=== PATIENT | male | born 1965 | race Caucasian/White ===

== ENCOUNTER 2017-01-16 08:21 | Outpatient (CLI) | payer OTHER ==
[2016-09-17 12:35] VITALS: BP 129/82
[2017-01-16 09:07] LABS: BASOPHILS % 0.2 (0.0-1.5); EOSINOPHILS % 0.9 % (0.0-6.8); MEAN CORPUSCULAR HEMOGLOBIN 33.2 pg (28.0-34.0); MONOCYTES # 0.5 # k/uL (0.0-0.9); MONOCYTES % 7.7 % (0.0-11.0)
[2017-01-16 09:33] LABS: BILIRUBIN,DIRECT 0.2 mg/dL (0.0-0.4); eGFR (African) > 60; eGFR (Non-African) > 60
== END 2017-01-16 08:22 ==
LOC: POD 08:21
PROVIDERS: ATTEND Podiatrist Public Medicine
DX: M79.672 Pain in left foot (principal); M79.671 Pain in right foot; L85.1 Acquired keratosis [keratoderma] palmaris et plantaris; B35.1 Tinea unguium; L60.0 Ingrowing nail; M79.674 Pain in right toe(s); M79.675 Pain in left toe(s)
CPT/HCPCS: 11721; 36415; 80076; 82565; 85025; G0463

== ENCOUNTER 2017-05-08 10:21 | Outpatient (CLI) | payer OTHER ==
[2016-09-17 12:35] VITALS: BP 129/82
== END 2017-05-08 10:22 ==
LOC: POD 10:21
PROVIDERS: ATTEND Podiatrist Public Medicine
DX: B35.1 Tinea unguium (principal); L84 Corns and callosities; L60.0 Ingrowing nail; M79.671 Pain in right foot; M79.672 Pain in left foot; M79.674 Pain in right toe(s); M79.675 Pain in left toe(s); L85.1 Acquired keratosis [keratoderma] palmaris et plantaris
CPT/HCPCS: 11721; G0463

== ENCOUNTER 2017-08-07 09:58 | Outpatient (CLI) | payer OTHER ==
[2016-09-17 12:35] VITALS: BP 129/82
== END 2017-08-07 10:00 ==
LOC: POD 09:58
PROVIDERS: ATTEND Podiatrist Public Medicine
DX: B35.1 Tinea unguium (principal); M79.674 Pain in right toe(s); M79.675 Pain in left toe(s); M79.671 Pain in right foot; M79.672 Pain in left foot; L60.0 Ingrowing nail; L84 Corns and callosities; L85.1 Acquired keratosis [keratoderma] palmaris et plantaris
CPT/HCPCS: 11721; G0463

== ENCOUNTER 2017-08-08 15:41 | Outpatient (CLI) | payer OTHER ==
[2016-09-17 12:35] VITALS: BP 129/82
[2017-08-08 16:04] LABS: BASOPHILS % 0.8 (0.0-1.5); EOSINOPHILS % 2.1 % (0.0-6.8); MEAN CORPUSCULAR HEMOGLOBIN 31.7 pg (28.0-34.0); MONOCYTES % 6.2 % (0.0-11.0); NEUTROPHILS # 4.9 # k/uL (1.4-7.7)
[2017-08-08 16:32] LABS: eGFR (African) > 60; eGFR (Non-African) > 60
== END 2017-08-08 15:42 ==
LOC: LAB 15:41
PROVIDERS: ATTEND Pathology Clinical Pathology/Laboratory Medicine
DX: M06.9 Rheumatoid arthritis, unspecified (principal); Z92.25 Personal history of immunosuppression therapy
CPT/HCPCS: 36415; 80076; 82565; 85025

== ENCOUNTER 2017-09-17 07:09 | Outpatient (CLI) | payer OTHER ==
[2016-09-17 12:35] VITALS: BP 129/82
[2017-09-17 07:23] LABS: BASOPHILS % 0.9 (0.0-1.5); EOSINOPHILS % 2.1 % (0.0-6.8); MEAN CORPUSCULAR HEMOGLOBIN 32.2 pg (28.0-34.0); MEAN CORPUSCULAR VOLUME 92.4 fl (80.0-100.0); MONOCYTES % 8.1 % (0.0-11.0); NEUTROPHILS # 4.3 # k/uL (1.4-7.7)
[2017-09-17 08:09] LABS: eGFR (African) > 60; eGFR (Non-African) > 60
== END 2017-09-17 07:20 ==
LOC: LAB 07:09
PROVIDERS: ATTEND Family Medicine
DX: Z51.81 Encounter for therapeutic drug level monitoring (principal); E78.5 Hyperlipidemia, unspecified
CPT/HCPCS: 36415; 80053; 80061; 82607; 82746; 85025

== ENCOUNTER 2017-12-04 10:36 | Outpatient (CLI) | payer OTHER ==
[2016-09-17 12:35] VITALS: BP 129/82
== END 2017-12-04 10:37 ==
LOC: POD 10:36
PROVIDERS: ATTEND Podiatrist Public Medicine
DX: L85.1 Acquired keratosis [keratoderma] palmaris et plantaris (principal); M79.671 Pain in right foot; M79.672 Pain in left foot; B35.1 Tinea unguium; L84 Corns and callosities; L60.0 Ingrowing nail; M79.674 Pain in right toe(s); M79.675 Pain in left toe(s)
CPT/HCPCS: 11721; G0463

== ENCOUNTER 2018-03-05 10:24 | Outpatient (CLI) | payer OTHER ==
[2016-09-17 12:35] VITALS: BP 129/82
== END 2018-03-05 10:25 ==
LOC: POD 10:24
PROVIDERS: ATTEND Podiatrist Public Medicine
DX: L85.1 Acquired keratosis [keratoderma] palmaris et plantaris (principal); M79.671 Pain in right foot; M79.672 Pain in left foot; B35.1 Tinea unguium; L84 Corns and callosities; L60.0 Ingrowing nail; M79.674 Pain in right toe(s); M79.675 Pain in left toe(s)
CPT/HCPCS: 11721; G0463

== ENCOUNTER 2018-07-02 10:34 | Outpatient (CLI) | payer OTHER ==
[2016-09-17 12:35] VITALS: BP 129/82
== END 2018-07-02 10:35 ==
LOC: POD 10:34
PROVIDERS: ATTEND Podiatrist Public Medicine
DX: L85.1 Acquired keratosis [keratoderma] palmaris et plantaris (principal); M79.671 Pain in right foot; M79.672 Pain in left foot; B35.1 Tinea unguium; L84 Corns and callosities; L60.0 Ingrowing nail; M79.674 Pain in right toe(s); M79.675 Pain in left toe(s)
CPT/HCPCS: 11721; G0463

== ENCOUNTER 2018-10-21 06:47 | Outpatient (CLI) | payer OTHER ==
[2016-09-17 12:35] VITALS: BP 129/82
[2018-10-21 07:58] LABS: eGFR (Non-African) > 60
== END 2018-10-21 06:50 ==
LOC: LAB 06:47
PROVIDERS: ATTEND Family Medicine
DX: E03.9 Hypothyroidism, unspecified (principal)
CPT/HCPCS: 36415; 80053; 80061; 80185; 84439; 84443; 84481

== ENCOUNTER 2019-05-08 12:15 | Outpatient (CLI) | payer OTHER ==
[2016-09-17 12:35] VITALS: BP 129/82
[2019-05-20 14:54] LABS: BASOPHILS % 0.5 % (0.0-1.5); eGFR (Non-African) > 60
== END 2019-05-08 12:30 | disposition home or self-care (01) ==
LOC: LAB 12:15
PROVIDERS: ATTEND Family Medicine
DX: G40.909 Epilepsy, unspecified, not intractable, without status epilepticus (principal); I48.91 Unspecified atrial fibrillation
CPT/HCPCS: 36415; 80053; 80185; 85025

== ENCOUNTER 2019-11-04 09:00 | Outpatient (CLI) | payer OTHER ==
[2016-09-17 12:35] VITALS: BP 129/82
[2019-11-04 09:22] LABS: BASOPHILS % 0.3 % (0.0-1.5); NEUTROPHILS # 4.1 # k/uL (1.4-7.7)
[2019-11-04 10:05] LABS: eGFR (Non-African) > 60
[2019-11-04 10:06] LABS: HDL 34 mg/dL (>40)
== END 2019-11-04 09:05 ==
LOC: LAB 09:00
PROVIDERS: ATTEND Family Medicine
DX: E78.5 Hyperlipidemia, unspecified (principal)
CPT/HCPCS: 36415; 80053; 80061; 80185; 85025

== ENCOUNTER 2019-11-12 14:12 | Outpatient (CLI) | payer OTHER ==
[2016-09-17 12:35] VITALS: BP 129/82
--- NOTE | 2019-11-16 16:42 | OP Clinic Progress Note ---
DATE OF VISIT: 11/12/2019 SUBJECTIVE: Amor is a 54-year-old male presenting today with his caregiver for a right great toe medial and lateral border ingrown pain. The patient was seen earlier this week and had nails trimmed with an effort to try and relieve pain in this area. He states that he has continued to have pain and would like a procedure done to fix that. The patient as well as the caregiver as well as the guardian, Jeannine Gore who was on the phone, were able to listen to the risks and benefits of either a partial nail avulsion of both inside and outside portions of the great toe versus possibly adding a chemical matrixectomy and we elected to go forward altogether with just a plain partial nail avulsion to give it a chance to grow back and if it is a problem later on then we will do the chemical matrixectomy. His blood flow seems to be 1+ and I believe that he should do well with good capillary refill time present at the toe. The patient has no further questions or concerns and does not admit to any fevers, chills, nausea, vomiting, shortness of breath or chest pain. He denies being diabetic. OBJECTIVE: Vitals: Temperature 97.9 degrees Fahrenheit, heart rate 69, respiration rate 18, blood pressure 108/69. O2 saturation is 91% on room air. Vascular: 1+ DP and PT pulses, right foot. Capillary refill time is immediate to the right great toe. There is no edema noted in the right foot. Dermatologic: There was no obvious irritation about the medial or lateral borders of the right great toe. There were no other gross abnormalities noted except for some inflammation of the right great toenail. There is no drainage or any signs of infection. Musculoskeletal: There is pain on palpation that is present today on the medial and lateral borders of the right great toenail along the length of the nail, not just the tip. There is no significant gross abnormalities noted. Neurologic: Light touch sensation is intact to the toes, right foot. ASSESSMENT AND PLAN: 1. Onychocryptosis right great toe medial and lateral borders. 2. Jeannine Gore the legal guardian was placed on the phone today and a discussion was had with her as well as her caregiver and the patient Amor regarding the planned procedure for partial nail avulsion of the medial and lateral borders of the right great toenail. Risks and benefits that include but are not limited to bleeding and infection were discussed and consent was given verbally by Jeannine Gore, the legal guardian over the phone and witnessed by Star ____. The patient agreed as well to the procedure and this procedure was performed. PROCEDURE #1: Partial nail avulsion of the medial and lateral borders of the right great toenail. DETAILS: An alcohol swab was utilized to cleanse the base of the right great toe and an injection consisting of 6 cc of 1:1 mix of 2% lidocaine plain and 0.5% Marcaine plain were injected into the base of the right great toe. The Betadine prep was then performed to clean the toe and then a hemostat was utilized to release the nail from its dorsal and plantar borders on the medial and lateral sides of the right great toenail. A nail splitter was utilized to avulse the medial and lateral borders separately with efforts to hold down the center part of the nail while doing so. At this time, the sites were made sure that there was no nail remaining and this was confirmed from both borders. The sites were rinsed with the copious amount of normal saline, dried and then Triple Antibiotic Ointment and 4 x 4 gauze, 2-inch Mary Anne and 1-inch Coban were applied to the wound sites beginning on the great toe and ending on the distal forefoot to help hold it on the toe. Bleeding was controlled with pressure, which was minimal. It should be noted there was a good amount of bleeding per normal for this procedure that it was controlled well with pressure. After it was rinsed and pressure applied and hemostasis obtained, the dressings were applied as mentioned above. The patient tolerated the procedure well. The patient was given verbal and written instructions as well as the caregiver regarding care for this toe. We will have the patient return to clinic in two weeks for followup and to continue the daily dressing changes at home with antibiotic ointment and Band- Aid daily and we will see him in two weeks to make sure it is healing well. The patient has no further questions or concerns and we also notified Jeannine Gore, the legal guardian the plan for seeing him in two weeks for followup and she understood that as well. Prosper Oliveira D.P.M./[employer] [id number] /mab MTDD
== END 2019-11-12 14:50 ==
LOC: POD 14:12
PROVIDERS: ATTEND Podiatrist Foot & Ankle Surgery
DX: L60.0 Ingrowing nail (principal)
CPT/HCPCS: 11730; 99213; G0463; A4554

== ENCOUNTER 2019-11-26 14:09 | Outpatient (CLI) | payer OTHER ==
[2016-09-17 12:35] VITALS: BP 129/82
--- NOTE | 2019-11-30 12:57 | OP Clinic Progress Note ---
DATE OF VISIT: 11/26/2019 SUBJECTIVE: Amor Taylor is a 54-year-old male presenting to clinic with I believe a caregiver for followup of a right great toe medial and lateral border partial nail avulsion performed on 11/12/2019. The patient states that he is doing well and denies any pain at all. They have been doing appropriate care based on the instructions that were given. The patient does not admit to any fevers, chills, nausea, vomiting, shortness of breath or chest pain. OBJECTIVE: Vitals: Temperature 97.7 degrees Fahrenheit, heart rate 62, respiration rate 18, blood pressure 100/70. O2 saturation is 92% on room air. Vascular: 1+ DP and PT pulses, right foot. Capillary refill time is immediate to the right great toe. There is no edema noted on the right foot. Dermatologic: There is no irritation or erythema or abnormal drainage noted on the medial or lateral borders of the right great toe at the procedure sites. There were no other gross abnormalities noted, right foot. There is no drainage or any signs of infection. Musculoskeletal: There is no pain to palpation noted on the medial or lateral borders of the right great toe today. They essentially are dry on both sides almost completely. The patient has no other significant gross abnormalities noted. Neurologic: Light touch sensation is intact to the toes, right foot. ASSESSMENT AND PLAN: 1. Onychocryptosis-follow up of the right great toe medial and lateral border partial nail avulsion performed on 11/12/2019. The patient understands that these are healing beautifully and was encouraged to use a Band-Aid for one more week just to cover the area and then can discontinue the bandages. This was placed on his instructions to take home with the caregiver. The patient has no questions or concerns and can return to clinic just as needed. Prosper Oliveira D.P.M./[employer] [id number] /mab MTDD
== END 2019-11-26 14:45 ==
LOC: POD 14:09
PROVIDERS: ATTEND Podiatrist Foot & Ankle Surgery
DX: L60.0 Ingrowing nail (principal)
CPT/HCPCS: 99213; G0463; A4554